=== PATIENT | male | born 1960 | race Caucasian/White ===

== ENCOUNTER 2017-05-28 17:26 | Emergency (ER) | payer SELFPAY ==
--- NOTE | 2017-05-28 21:28 | Emergency Department Report ---
ED General Adult HPI - General Chief complaint: High BP Stated complaint: TINGLING IN LT ARM/CHEST PRESSURE /HBP Time Seen by Provider: 05/28/17 21:21 Source: patient, EMS Mode of arrival: Stretcher Limitations: No Limitations - History of Present Illness Initial comments: Patient is poor historian Ivorian is not his [place] language states that he was being treated through [facility] for his blood pressure he is not sure if he supposed to be on it. He came here because his blood pressure was high and he was worried about tingling in his left arm -: Gradual, unknown Radiation: extremity Severity scale (0 -10): 0 Quality: burning Associated Symptoms: denies other symptoms. denies: chest pain, cough, diaphoresis, fever/chills, headaches, loss of appetite, malaise, nausea/vomiting , rash, seizure, shortness of breath, syncope, weakness - Related Data Allergies Allergy/AdvReac Type Severity Reaction Status Date / Time No Known Allergies Allergy Unverified 05/28/17 21:15 ED Review of Systems ROS: Stated complaint: TINGLING IN LT ARM/CHEST PRESSURE /HBP Other details as noted in HPI Comment: All other systems reviewed and negative Constitutional: denies: diaphoresis, fever, malaise, weakness Respiratory: no symptoms reported. denies: shortness of breath, SOB with exertion, SOB at rest, stridor, wheezing Cardiovascular: denies: chest pain, palpitations, dyspnea on exertion, orthopnea , edema, syncope, paroxysmal nocturnal dyspnea Gastrointestinal: denies: abdominal pain, nausea, vomiting, diarrhea, constipation, hematemesis, melena, hematochezia Neurological: as per HPI. denies: headache, weakness, paresthesias, confusion, abnormal gait, vertigo Psychiatric: denies: anxiety, auditory hallucinations, visual hallucinations, homicidal thoughts, suicidal thoughts ED Past Medical Hx - Past Medical History Previous Medical History?: No - Surgical History Past Surgical History?: No - Social History Smoking Status: Never Smoker Substance Use Type: None ED Physical Exam - General Limitations: No Limitations, Language Barrier General appearance: alert, in no apparent distress - Head Head exam: Present: atraumatic, normocephalic - Eye Eye exam: Present: PERRL, EOMI - ENT ENT exam: Present: normal exam, normal orophraynx, mucous membranes dry, mucous membranes moist - Neck Neck exam: Present: normal inspection. Absent: tenderness, meningismus, full ROM, lymphadenopathy, thyromegaly - Respiratory Respiratory exam: Present: normal lung sounds bilaterally. Absent: respiratory distress, wheezes, rales, rhonchi, stridor, chest wall tenderness, accessory muscle use, decreased breath sounds, prolonged expiratory - Cardiovascular Cardiovascular Exam: Present: regular rate, normal rhythm, normal heart sounds. Absent: irregular rhythm, systolic murmur, diastolic murmur, rubs, gallop - GI/Abdominal GI/Abdominal exam: Present: soft. Absent: tenderness, guarding, rebound, mass, bruit, pulsatile mass - Extremities Exam Extremities exam: Present: normal inspection. Absent: normal capillary refill, pedal edema, joint swelling, calf tenderness - Back Exam Back exam: Present: normal inspection. Absent: paraspinal tenderness, vertebral tenderness - Neurological Exam Neurological exam: Present: alert, oriented X3, CN II-XII intact, reflexes normal. Absent: motor sensory deficit ED Course Vital Signs 05/28/17 05/28/17 05/28/17 20:51 21:00 21:04 Temperature 98.2 F Pulse Rate 71 63 67 Respiratory 20 15 20 Rate Blood Pressure 168/89 180/91 O2 Sat by Pulse 98 98 Oximetry 05/28/17 05/28/17 05/28/17 21:16 21:17 21:18 Temperature 98.2 F Pulse Rate 63 Respiratory 14 20 Rate Blood Pressure 168/89 O2 Sat by Pulse 97 98 Oximetry 05/28/17 05/28/17 05/28/17 21:30 21:48 22:00 Temperature Pulse Rate 62 65 59 L Respiratory 17 11 L 17 Rate Blood Pressure 154/84 154/84 165/90 O2 Sat by Pulse 97 97 97 Oximetry 05/28/17 05/28/17 05/28/17 22:16 22:30 22:45 Temperature Pulse Rate 65 58 L 61 Respiratory 15 19 17 Rate Blood Pressure 165/90 165/90 165/90 O2 Sat by Pulse 98 92 97 Oximetry 05/28/17 05/28/17 05/28/17 23:00 23:16 23:30 Temperature Pulse Rate 59 L 59 L 60 Respiratory 21 16 17 Rate Blood Pressure 155/99 155/99 161/99 O2 Sat by Pulse 98 99 97 Oximetry 05/28/17 05/29/17 05/29/17 23:46 00:00 00:01 Temperature Pulse Rate 59 L 56 L 59 L Respiratory 16 15 17 Rate Blood Pressure 155/99 174/84 174/84 O2 Sat by Pulse 98 97 98 Oximetry 05/29/17 05/29/17 05/29/17 00:16 00:30 00:46 Temperature Pulse Rate 60 58 L 56 L Respiratory 19 19 18 Rate Blood Pressure 174/84 161/95 174/84 O2 Sat by Pulse 97 97 99 Oximetry 05/29/17 01:09 Temperature 98.2 F Pulse Rate Respiratory Rate Blood Pressure O2 Sat by Pulse Oximetry ED Medical Decision Making - Lab Data Result diagrams: 05/28/17 22:00 05/28/17 22:00 - EKG Data -: EKG Interpreted by Me EKG shows normal: sinus rhythm - EKG Data Interpretation: nonspecific ST-T wave leti 05/29/17 02:10 no acute ischemic changes - Radiology Data Radiology results: report reviewed - Medical Decision Making Patient with poorly controlled high blood pressure but no ssx end organ damage noted at this time. pt is asymptomatic and stable ouptpt f/u, trop neg x 2 , no ssx acs or other emergency noted at this time Critical care attestation.: If time is entered above; I have spent that time in minutes in the direct care of this critically ill patient, excluding procedure time. ED Disposition Clinical Impression: Hypertension Disposition: DC-01 TO HOME OR SELFCARE Is pt being admited?: No Condition: Stable Instructions: Hypertension (ED) Additional Instructions: See the doctor listed return if new alarming symptoms Time of Disposition: 02:17
--- NOTE | 2017-05-28 22:07 | XRay Report ---
FINAL REPORT PROCEDURE: XR CHEST ROUTINE 2V TECHNIQUE: PA and lateral chest radiographs were obtained. CPT 87642 HISTORY: Chest Pain COMPARISON: No prior studies are available for comparison. FINDINGS: Heart: The heart is borderline enlarged.. Mediastinum/Vessels: Normal. Lungs/Pleural space: Lungs are clear and expanded. There are no infiltrates, effusions or pneumothoraces.. Bony thorax: No acute osseous abnormality. Other: IMPRESSION: Normal heart and lungs..
[2017-05-28 22:10] LABS: Basophils % (Auto) 0.3 % (0.0-1.8); Eosinophils # (Auto) 0.3 K/mm3 (0.0-0.4); Eosinophils % (Auto) 3.7 % (0.0-4.3); Hematocrit 45.1 % (35.5-45.6); Lymphocytes # (Auto) 2.2 K/mm3 (1.2-5.4); Lymphocytes % (Auto) 25.8 % (13.4-35.0); Mean Corpuscular HGB Conc 33 % (32-34); Mean Corpuscular Hemoglobin 29 pg (28-32); Mean Corpuscular Volume 86 fl (84-94); Monocytes # (Auto) 0.7 K/mm3 (0.0-0.8); Monocytes % (Auto) 8.2 % (0.0-7.3); Platelet Count 298 K/mm3 (140-440); Red Blood Count 5.23 M/mm3 (3.65-5.03); Red Cell Distribution Width 13.4 % (13.2-15.2)
[2017-05-28 22:33] LABS: Alanine Aminotransferase 24 units/L (7-56); Albumin 4.2 g/dL (3.9-5); BUN/Creatinine Ratio 27; Blood Urea Nitrogen 16 mg/dL (9-20); Calcium 8.8 mg/dL (8.4-10.2); Hemolysis Index 3
--- NOTE | 2017-05-28 22:59 | Cat Scan Report ---
FINAL REPORT PROCEDURE: CT HEAD/BRAIN WO CON TECHNIQUE: Computerized tomography of the head was performed without contrast material. HISTORY: htn COMPARISON: No prior studies are available for comparison. FINDINGS: Skull and scalp: Normal. Paranasal sinuses: Normal. Ventricles and subarachnoid spaces: Normal. Cerebrum: No evidence of hemorrhage, acute infarction or mass . Cerebellum and brainstem: No evidence of hemorrhage, acute infarction or mass. Vasculature: Normal. Comments: None. IMPRESSION: Normal Examination
[2017-05-29 00:12] VITALS: BP 174/84
== END 2017-05-29 02:32 | disposition home or self-care (01) ==
LOC: ED 17:26
DX: I10 Essential (primary) hypertension (principal)
CPT/HCPCS: 36415; 70450; 71046; 80053; 84484; 85025; 93005; 93010

== ENCOUNTER 2017-07-26 11:08 | Outpatient (CLI) | payer OTHER ==
--- NOTE | 2017-07-26 16:31 | Magnetic Resonance Report ---
MRI CERVICAL SPINE WITHOUT AND WITH CONTRAST: 07/26/17 CLINICAL: Paraplegia TECHNIQUE: Sagittal T1,T2 and STIR and axial gradient T2* sequences plus sagittal and axial postcontrast T1 fat sat sequences on a 1.5 Taylor magnet. 12 cc of Multihance was injected intravenously without incident for the contrast portion of the exam and consent was obtained prior to administration of the contrast. FINDINGS:Straightening of the cervical spine and relatively uniform decrease height of vertebral bodies C3-C7. The overall marrow signal is normal. The cerebellar tonsils are normal position. The upper spinal cord is normal in size. Spinal canal stenosis from C2-3 through C6-7 is produced by posterior bar which produces relatively uniform effacement of the thecal sac from C2-3 through C5. The canal is most narrowed at C5-6 and the narrowing is produced by a large broad-based central disc protrusion which narrows the canal to 3 mm in the AP dimension. Mild T2 hyperintense signal in the spinal cord at the level of the greatest narrowing in a small 5 mm long syrinx at the C4-5 disc level. No enhancing lesion of the cord. No mass or abnormal enhancement. C2-3: Small focal central disc protrusion in addition to the posterior bar which narrows the spinal canal. No neural foraminal narrowing. C3-4:Central posterior bar narrowing the spinal canal. The disc is intact. Small uncal osteophytes and mild right neural foraminal narrowing. C4-5: Moderate central disc protrusion in addition to the posterior bar which narrows the spinal canal. Uncal osteophytes and mild bilateral neural foraminal narrowing. C5-6:Large broad-based and left paracentral disc protrusion producing marked central spinal canal stenosis as well as bilateral lateral recess stenosis, left greater than right. Severe bilateral neural foraminal narrowing. C6-7:Large central broad-based disc protrusion producing effacement of the thecal sac and mild compression of the cord. Uncal osteophytes and marked bilateral neural foraminal narrowing. C7-T1:Intact. IMPRESSION: 1. Spinal canal stenosis from C2-3 through C6-7. 2. A large broad-based central and left paracentral C5-6 disc protrusion produces the most significant spinal canal stenosis with mass effect on the cord and focal cord myelopathy. 3. A small syrinx at C4-5. 4. Multilevel bilateral neural foraminal stenosis as described above. 5. No mass or enhancing lesion.
== END 2017-07-26 11:09 | disposition home or self-care (01) ==
LOC: SPVIMAG 11:08
PROVIDERS: ATTEND Specialist
DX: M48.02 Spinal stenosis, cervical region (principal); C82.20 Follicular lymphoma grade III, unspecified, unspecified site; M50.222 Other cervical disc displacement at C5-C6 level; G82.20 Paraplegia, unspecified
CPT/HCPCS: 72156; A9577